=== PATIENT | male | born 1970 | race Hispanic/Latino ===

== ENCOUNTER 2022-03-23 16:37 | Emergency (ER) | payer SELFPAY ==
--- NOTE | 2022-03-23 18:03 | XRay Report ---
CHEST 1 VIEW 03/23/2022 4:57 PM INDICATION / CLINICAL INFORMATION: Chest Pain. COMPARISON: 08/14/07. FINDINGS: SUPPORT DEVICES: None. HEART / MEDIASTINUM: The heart size and pulmonary vasculature are normal. The aorta is normal in braxton vinicio. LUNGS / PLEURA: No significant pulmonary or pleural abnormality. No pneumothorax. ADDITIONAL FINDINGS: No significant additional findings. IMPRESSION: No acute abnormality or significant change. Signer Name: Piter Helm MD Signed: 03/23/2022 5:59 PM Workstation Name: [id number]
[2022-03-23] MEDS ORDERED: MORPHINE 4 MG/1 ML INJ IV ONE (18:12)
--- NOTE | 2022-03-23 18:14 | Emergency Department Report ---
ED Chest Pain HPI - General Chief Complaint: Chest Pain Stated Complaint: CHEST PAIN Time Seen by Provider: 03/23/22 18:00 Source: patient, EMS Mode of arrival: Stretcher Limitations: No Limitations - History of Present Illness Initial Comments: Patient is a 52-year-old male presenting to ED with complaint of left-sided chest pain radiating down his arm into his shoulder. He describes the pain as a sharp sensation that began roughly 2 and half hours ago. Currently rates his pain a 4 out of 10. He is a smoker reports history of leaky heart valves and enlarged heart. He denies any other symptoms. There are no modifying factors. Severity scale (0 -10): 10 - Related Data Allergies Allergy/AdvReac Type Severity Reaction Status Date / Time erythromycin base Allergy Unknown Verified 03/23/22 16:53 Heart Score - HEART Score History: Slightly suspicious EKG: Normal Age: 45-65 Risk factors: 1-2 risk factors Troponin: < normal limit HEART Score: 2 - EKG Read Time Time EKG Completed: 17:24 EKG Read Time: 17:37 - Critical Actions Critical Actions: 0-3 pts:0.9-1.7%risk of adverse cardiac event.Candidate for discharge ED Review of Systems ROS: Stated complaint: CHEST PAIN Other details as noted in HPI Constitutional: denies: chills, fever Respiratory: denies: cough, shortness of breath, wheezing Cardiovascular: chest pain Endocrine: no symptoms reported Gastrointestinal: denies: abdominal pain, nausea, diarrhea Genitourinary: denies: urgency, dysuria Musculoskeletal: denies: back pain, joint swelling, arthralgia Skin: denies: rash, lesions Neurological: denies: headache, weakness, paresthesias Psychiatric: denies: anxiety, depression ED Physical Exam - General Limitations: No Limitations General appearance: alert, in no apparent distress - Head Head exam: Present: atraumatic, normocephalic - Neck Neck exam: Present: normal inspection, other (No JVD) - Respiratory Respiratory exam: Present: normal lung sounds bilaterally. Absent: respiratory distress - Cardiovascular Cardiovascular Exam: Present: regular rate, normal rhythm, normal heart sounds - GI/Abdominal GI/Abdominal exam: Present: soft. Absent: distended, tenderness - Rectal Rectal exam: Present: deferred - Neurological Exam Neurological exam: Present: alert, oriented X3 - Psychiatric Psychiatric exam: Present: normal affect, normal mood - Skin Skin exam: Present: warm, dry, intact, normal color ED Course Vital Signs 03/23/22 03/23/22 03/23/22 16:38 17:17 17:31 Temperature 98.0 F Pulse Rate 67 62 74 Respiratory 18 Rate Blood Pressure 153/86 Blood Pressure 212/129 [Left] O2 Sat by Pulse 96 97 Oximetry 03/23/22 03/23/22 03/23/22 17:39 17:45 18:01 Temperature Pulse Rate 85 Respiratory Rate Blood Pressure 153/82 153/82 Blood Pressure [Left] O2 Sat by Pulse 98 98 Oximetry 03/23/22 03/23/22 03/23/22 18:15 18:31 18:45 Temperature Pulse Rate Respiratory Rate Blood Pressure 153/82 153/82 140/80 Blood Pressure [Left] O2 Sat by Pulse 98 99 98 Oximetry ED Medical Decision Making - Lab Data Result diagrams: 03/23/22 17:56 03/23/22 17:56 - EKG Data -: EKG Interpreted by Dc EKG shows normal: sinus rhythm, axis, intervals, QRS complexes, ST-T waves Rate: normal - Medical Decision Making Work-up including EKG, chest x-ray, labs unremarkable. Heart score is 2. Patient given morphine for pain. On reassessment states his symptoms are improved. He is stable for discharge home with PCP follow-up in 1 to 2 weeks. Critical care attestation.: If time is entered above; I have spent that time in minutes in the direct care of this critically ill patient, excluding procedure time. ED Disposition Clinical Impression: Acute nonspecific chest pain with low risk of coronary artery disease Disposition: HOME / SELF CARE / HOMELESS Is pt being admited?: No Condition: Stable Instructions: Chest Pain (ED), Nonspecific Chest Pain, Adult, [id number] Additional Instructions: Please follow-up with your primary care doctor within 1 to 2 weeks. Do not hesitate to return if you experience recurrence of your symptoms. Time of Disposition: 21:52
[2022-03-23 18:40] LABS: Alanine Aminotransferase 30 units/L (7-56); Albumin 4.2 g/dL (3.9-5); BUN/Creatinine Ratio 16; Blood Urea Nitrogen 13 mg/dL (9-20); Calcium 8.8 mg/dL (8.4-10.2); Hemolysis Index 4
[2022-03-23 18:46] LABS: Basophils % (Auto) 0.4 % (0.0-1.8); Eosinophils # (Auto) 0.1 K/mm3 (0.0-0.4); Eosinophils % (Auto) 1.2 % (0.0-4.3); Hematocrit 44.9 % (35.5-45.6); Hemoglobin 15.1 gm/dl (11.8-15.2); Lymphocytes # (Auto) 1.8 K/mm3 (1.2-5.4); Lymphocytes % (Auto) 27.1 % (13.4-35.0); Mean Corpuscular HGB Conc 34 % (32-34); Mean Corpuscular Volume 89 fl (84-94); Monocytes # (Auto) 0.7 K/mm3 (0.0-0.8); Platelet Count 274 K/mm3 (140-440); Red Blood Count 5.07 M/mm3 (3.65-5.03); Red Cell Distribution Width 12.9 % (13.2-15.2)
[2022-03-23 18:52] VITALS: BP 140/80
--- NOTE | 2022-03-25 09:43 | Electrocardiograph Report ---
[facility] Test Date: 2022-03-23 Test Time: 17:24:17 Pat Name: DARBY RITTER Department: Room: Gender: M [employer] Groom[employer]: GP : 1970 Requested By: SYLVIA GUTIERREZ Order Number: [id number] Reading MD: Derek Bañuelos Measurements Intervals [place] Rate: 66 P: 38 [place]: 142 QRS: 27 QRSD: 95 T: 13 QT: 396 QTc: 416 Interpretive Statements Sinus rhythm No previous ECG available for comparison Electronically Signed On 03-25-2022 9:42:59 EDT by Derek Bañuelos
== END 2022-03-23 22:35 | disposition home or self-care (01) ==
LOC: ED 16:37
DX: I25.10 Atherosclerotic heart disease of native coronary artery without angina pectoris (principal); R07.9 Chest pain, unspecified; Z91.09 Other allergy status, other than to drugs and biological substances
CPT/HCPCS: 36415; 71045; 80053; 84484; 85025; 93005; 96374; 99284; J2270